=== PATIENT | female | born 1990 | race African-American/Black ===

== ENCOUNTER 2017-11-18 20:15 | Emergency (ER) | payer OTHER, SELFPAY ==
[2017-11-18] MEDS ORDERED: diphenhydrAMINE 50 MG/ML VIAL ONE (20:34)
[2017-11-18] MEDS ORDERED: methylPREDNISolone Acetate 40 mg/ml Vial ONE (21:29)
== END 2017-11-18 21:37 | disposition home or self-care (01) ==
LOC: BURERS 20:15
DX: F32.9 Major depressive disorder, single episode, unspecified (principal); R21 Rash and other nonspecific skin eruption
CPT/HCPCS: 36416; 96372; J1030; J1200